=== PATIENT | female | born 1985 | race Caucasian/White ===

== ENCOUNTER 2017-04-27 22:06 | Emergency (ER) | payer BC, MEDICAID ==
[~2017-04-27] VITALS: Ht 160 cm; Wt 74.7 kg
[~2017-04-27 22:06] MED LIST: ACYC400T PO; ALPR.25 PO; CELE20TA PO; FAMO20TA2 PO; NAPR500T2 PO; REPL5000 CHEW
[2017-04-27 22:39] VITALS: BP 123/83; PULSE 90; RESP 18; TEMP 98.9; O2SAT 100
[2017-04-28] MEDS ORDERED: MAXA5TAB2 PO (00:35)
[2017-04-28 01:12] VITALS: BP 110/84; PULSE 81; RESP 18; O2SAT 100
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
[2017-04-28] MEDS ORDERED: IBUPROFEN 600 MG TAB PO ONE (02:15)
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
[2017-04-28 02:24] VITALS: BP 102/55; PULSE 67; RESP 18; O2SAT 100
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
[2017-04-28 03:27] VITALS: RESP 16
[2017-04-28] MEDS ORDERED: CYCL10TA PO (03:40)
[2017-04-28] MEDS ORDERED: IBUP-232 PO (03:40)
[2017-04-28 03:46] VITALS: BP 103/50
== END 2017-04-28 03:56 | disposition home or self-care (01) ==
LOC: PHED 22:06
DX: S16.1XXA Strain of muscle, fascia and tendon at neck level, initial encounter (principal); S00.03XA Contusion of scalp, initial encounter; M25.531 Pain in right wrist; M25.532 Pain in left wrist; H93.11 Tinnitus, right ear; H53.8 Other visual disturbances; F41.8 Other specified anxiety disorders; Z87.19 Personal history of other diseases of the digestive system; Y04.2XXA Assault by strike against or bumped into by another person, initial encounter
CPT/HCPCS: 70450; 72125; 99285

== ENCOUNTER 2018-01-22 06:04 | Inpatient (IN) ==
[2018-01-22] MEDS ORDERED: Chlorhexidine Gluconate 2% 1 Pack (2 Cloths) TOPICAL ONE (07:17)
[2018-01-22] MEDS ORDERED: Metoprolol Tartrate 25 MG Tablet PO ONE (07:17)
[2018-01-22] MEDS ORDERED: Dexmedetomidine Inj 200 MCG/2 ML Vial ONE (07:23)
[2018-01-22] MEDS ORDERED: Microfibrillar Collagen Hemostat 1 GM Packet TOPICAL ONE (07:29)
[2018-01-22] MEDS ORDERED: Lidocaine 1%/Epinephrine 1:100,000 Inj 50 ML Vial ONE (07:29)
[2018-01-22] MEDS ORDERED: Bacitracin Opth Oint 3.5 GM Tube ONE (07:29)
[2018-01-22] MEDS ORDERED: MethylPREDNISolone Sod Succinate Inj 125 MG/2 ML Vial IV.PUSH SCH (07:30)
[2018-01-22] MEDS ORDERED: Thrombin Topical Soln 5,000 UNIT Vial TOPICAL ONE (07:31)
[2018-01-22] MEDS ORDERED: Famotidine PF Inj 20 MG/2 ML Vial ONE (07:46)
[2018-01-22] MEDS ORDERED: ceFAZolin 2 GM IV; once IV.SIG ONE (08:00)
[2018-01-22] MEDS ORDERED: Sodium Chlor 0.9% Inj 500 ML IV.SIG SCH (08:00)
[2018-01-22] MEDS ORDERED: ceFAZolin 2 GM/NS 100 ML IV; Q8H IV.SIG SCH ×2 (08:00)
[2018-01-22] MEDS ORDERED: Lidocaine PF 1% Inj 5 ML Syringe OTHER ONE (08:13)
[2018-01-22] MEDS ORDERED: Labetalol HCl Inj 100 MG/20 ML Vial IV.CONT ONE (08:13)
[2018-01-22] MEDS ORDERED: Metoprolol Inj 5 MG/5 ML Vial IV.PUSH ONE (08:13)
[2018-01-22] MEDS ORDERED: Neostigmine Inj 5 MG/5 ML Syringe IV.PUSH ONE (08:13)
[2018-01-22] MEDS ORDERED: Glycopyrrolate Inj 1 MG/5 ML Syringe IV.PUSH ONE (08:13)
[2018-01-22] MEDS ORDERED: fentaNYL Citrate Inj 100 MCG/2 ML Ampul ONE (11:02)
[2018-01-22] MEDS ORDERED: Post-op Orders (for Pharmacy) OTHER ONE (11:03)
[2018-01-22] MEDS ORDERED: Naloxone Inj 0.4 MG/ML Vial IV.PUSH PRN (11:03)
[2018-01-22] MEDS ORDERED: Acetaminophen-HYDROcodone 325/7.5 Liq 15 ML UDC PO PRN (11:13)
[2018-01-22] MEDS ORDERED: PSEUDOEPHEDRINE HCL PO PRN (11:15)
[2018-01-22] MEDS: KCL 20 mEq/D5W/NaCl 0.45% Inj 1,000 ML IV.CONT SCH ×2 (11:16→17:19)
[2018-01-22] MEDS ORDERED: Ketorolac Inj 30 MG/ML (IVP) Vial ONE (11:20)
--- NOTE | 2018-01-22 11:22 | P.BOP ---
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
[2018-01-22] MEDS ORDERED: *morphine SULFATE 4 MG/ML PERIprocedure ONLY ONE (11:59)
--- NOTE | 2018-01-22 12:11 | P.OP ---
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 - Stable postoperative fixation Procedure: The patient was identified in the [facility] holding area and medical history and informed consent were reviewed with the patient. All questions were answered. The patient was taken via stretcher to operating room 9 and placed in the supine position on the operating table. Standard lines and monitors were applied. The patient was preoxygenated and general anesthesia was induced via IV. The patient was intubated nasoendotracheally without complications. The tube was secured by the hand meat salter team. Bilateral breath sounds and end tidal CO2 were noted. Eyes were taped with Tegaderm. An arterial line was started by the anesthesia team. A reilly catheter was inserted in a sterile fashion. Both arms were then tucked. Extremities were evaluated and found to be in normal range of motion with all pressure points padded. A second timeout was made. Local anesthetic was injected in the bilateral maxilla. The patient was prepped and draped using sterile technique in a usual hand meat salter manner. A throat pack was placed and noted. Attention was turned to the bilateral medial canthi. A marking pen was used to sadaf the medial canthi bilaterally. Using these as external reference points, measurements were taken from the maxillary canines. These measurements were marked on the sterile drapes. Electrocautery was then used to make a a right maxillary vestibular incision from the zygomatic buttress toward the maxillary midline. The incision was carried down to bone and #9 periosteal elevator was used to dissect in a subperiosteal plane to expose the anterior maxilla. The nasal mucosa was dissected free from the piriform aperture and nasal floor using a [place] elevator and #9 periosteal elevator. Electrocautery was then used to make a left maxillary vestibular incision from the zygomatic buttress toward the maxillary midline. The incision was carried down to bone and #9 periosteal elevator was used to dissect in a subperiosteal plane to expose the anterior maxilla. The nasal mucosa was dissected free from the piriform aperture and nasal floor using a [place] elevator and #9 periosteal elevator. A periosteal elevator was then used to dissect in a subperiosteal plane to expose the left and right lateral sinus wall. Next, a reciprocating saw was used to make a modified horizontal osteotomy starting at the zygomatic buttress on the left side following marking the proposed osteotomy with a sterile pencil. The osteotomy was carried inferiorly to the inferior portion of the piriform rim. Next, a periosteal elevator was used to dissect along the lateral aspect of the maxilla. A toe-out retractor was placed and a reciprocating saw under copious irrigation was used to osteotomize the left lateral maxillary sinus wall. At this point, the wound was packed with a moist Ray-Dayan and attention was turned to the right side. A toe-out retractor was placed and a reciprocating saw was used under copious irrigation to make a horizontal osteotomy starting at the right zygomatic buttress after marking the proposed osteotomy with a sterile pencil. The osteotomy was carried inferiorly to the inferior portion of the piriform rim. A reciprocating saw was then used to osteotomize the right lateral maxillary sinus wall. Attention was then directed to the anterior maxilla where the soft tissue was dissected from the anterior nasal spine with a #9 periosteal elevator and the nasal septopremaxillary ligament was removed. A nasal septal osteotome was then advanced into the wound and used to cleave the bony nasal septum. At this point, attention was turned to the right side where a spatula osteotome and mallet were used to cleave the lateral nasal wall as well as the perpendicular plate of the palatine bone. Attention was then turned to the left side where a spatula osteotome was used to cleave the left lateral nasal wall as well as the perpendicular plate of the palatine bone. Attention was then turned to the right side where a pterygomaxillary osteotome was introduced to the right side at the junction of the pterygoid plate and the maxilla. The position was verified with the use of digital palpation. Next, using a mallet, the pterygoid plates were cleaved and the wound was packed with a moist Ray Dayan. Attention was then turned to the left side where a pterygomaxillary osteotome was introduced and verified to be in appropriate position with digital palpation. With the use of a mallet, the pterygoid plate was cleaved from the maxilla and the wound was packed with a moist Ray-Dayan. Downward pressure was then placed on the maxilla by the surgeon's hand and the maxilla was downfractured. Lino spreaders were also used at the nasomaxillary and zygomaticomaxillary buttresses to deliver controlled force to down fracture the maxilla. The maxilla was then mobilized with Montaño disimpaction forceps. Periosteal elevator was then used to strip the nasal mucosa from the maxilla. Rongeur forceps were used to remove any bony interferences. #15 blade was then used to remove a cartilaginous strut of the nasal septum. The final splint was placed on the maxilla using 28 gauge wire and the patient was placed into maxillomandibular fixation using 25 gauge wire loops. Measurements were taken to confirm appropriate vertical positioning of the maxilla. 4-0 chromic suture was then used to reapproximate the mucosa of the nasal floor in an interrupted fashion. Next, the maxillary sinus membrane was elevated in the right maxillary premolar region. Bone morphogenic protein, allogeneic bone (Regeneross), xenograft (Bio-Oss) were placed in the right maxillary premolar region. PRP was layered superiorly over the bone graft. The maxilla was then appropriately positioned and the maxilla was reconstructed first with a 4-hole 2.0 KLS L plate adapted to the right nasomaxillary buttress. This was fixated under copious irrigation via predrilled osteotomies with 4, 2.0 mm x 5 mm screws. A 4-hole 2.0 KLS L plate was then adapted to the right zygomaticomaxillary buttress. This was fixated under copious irrigation via predrilled osteotomies with 4, 2.0 mm x 5 mm screws. Once the right side was fixated, attention was turned to the left side where 2, 4-hole KLS 2.0 L plates were adapted to the left maxilla at the nasomaxillary and zygomaticomaxillary buttresses. These plates were fixated in place using copious irrigation via predrilled osteotomies with 2.0 x 5 mm screws and one 2.0x7mm screw. The patient was released from maxillomandibular fixation. The occlusion was found to be stable and repeatable into the splint without interferences. The maxilla was stable. A nasal cinch suture was placed to reapproximate the alar base with 2-0 Prolene suture in an interrupted fashion. The wound was initially closed with 4-0 chromic gut suture placed in the muscular layer bilaterally. The anterior vertical wound in the maxilla along the midline was closed with a continuous horizontal mattress 4-0 chromic gut suture. The mucosal layer was then reapproximated with 4-0 chromic gut suture placed in a continuous horizontal mattress fashion. The entire oral cavity was thoroughly irrigated. The throat pack were removed under direct visualization with a Yankauer in place. An orogastric tube was placed into the stomach to remove its contents and retracted. The patient was placed in bilateral neutral posterior box (latex-free) elastics with an anterior box. The occlusion was stable and reproducible with the final splint. The patient was cleaned and turned back to the Anesthesia Care team where she was extubated without complication. The patient was transferred to the post- anesthesia care unit for recovery.
[2018-01-22] MEDS ORDERED: Sodium Chloride 0.9% 2 ML Flush PRN IV.FLUSH (13:48)
[2018-01-22] MEDS ORDERED: Morphine Inj 4 MG/ML Vial IV.PUSH PRN (16:07)
[2018-01-22] MEDS: Ketorolac Inj 30 MG/ML (IVP) Vial IV.PUSH SCH ×2 (16:24→23:27)
[2018-01-22] MEDS: ceFAZolin Inj 1,000 MG in Sodium Chlor 0.9% Inj 100 ML IV.SIG SCH ×2 (17:10→23:26)
[2018-01-22] MEDS ORDERED: Carboxymethylcellulose 0.5% Opth Drops 15 ML Bottle EACH EYE PRN (18:00)
[2018-01-22] MEDS: Sodium Chloride 0.9% 2 ML Flush BID IV.FLUSH SCH (20:01)
[2018-01-22] MEDS: MethylPREDNISolone Sod Succinate Inj 125 MG/2 ML Vial IV.PUSH SCH (20:01)
[2018-01-23] MEDS: KCL 20 mEq/D5W/NaCl 0.45% Inj 1,000 ML IV.CONT SCH (02:20)
[2018-01-23 05:44] LABS: Baso % (Auto) 0.2 % (0.0-2.0); Hemoglobin 9.3 gm/dL (11.6-15.3); Lymph # (Auto) 0.7 th/mm3 (1.0-4.8); Lymph % (Auto) 4.1 % (9.0-44.0); Mean Corpuscular Hemoglobin 25.4 pg (27.0-34.0); Mean Corpuscular Volume 79.4 fL (80.0-100.0); Mean Platelet Volume 8.7 fL (7.0-11.0); Mono # (Auto) 0.5 th/mm3 (0.0-0.9); Mono % (Auto) 2.9 % (0.0-8.0); Neut # (Auto) 16.6 th/mm3 (1.8-7.7); Neut % (Auto) 92.8 % (16.0-70.0); Platelet Count 337 th/mm3 (150-450); Red Blood Count 3.66 mil/mm3 (4.00-5.30); Red Cell Distribution Width 23.3 % (11.6-17.2); White Blood Count 17.8 th/mm3 (4.0-11.0)
[2018-01-23] MEDS: Ketorolac Inj 30 MG/ML (IVP) Vial IV.PUSH SCH ×2 (05:55→11:00)
[2018-01-23 06:07] LABS: Calcium 8.8 mg/dL (8.5-10.1); Carbon Dioxide 24.7 meq/L (21.0-32.0); Potassium 4.1 meq/L (3.5-5.1)
--- NOTE | 2018-01-23 07:01 | P.PN ---
Subjective Interval history: 32 y/o F with a history of Crohn's disease, iron deficiency anemia, and maxillary hypoplasia who is now s/p LeFort 1 osteotomy and right maxillary sinus lift on 01/22/18. She reports that her pain is well controlled. She has had minimal PO intake. She notes that her nose is very congested and that a rubber band on the right side broke last night. She denies any changes in her vision. She reports that the tenderness in her right forehead from yesterday has resolved. Physical Exam Vital signs: Vital Signs 01/22/18 07:34 01/22/18 10:51 01/22/18 11:37 Temperature 98.7 F 98.1 F Pulse Rate 80 86 65 Respiratory Rate 16 14 18 Blood Pressure 126/86 Pulse Oximetry 99 96 99 01/22/18 11:45 01/22/18 12:00 01/22/18 12:15 Temperature Pulse Rate 71 68 81 Respiratory Rate 14 19 14 Blood Pressure 107/69 113/77 111/70 Pulse Oximetry 95 94 L 95 01/22/18 12:30 01/22/18 13:00 01/22/18 16:54 Temperature 97.8 F 98.3 F Pulse Rate 85 89 Respiratory Rate 15 12 20 Blood Pressure 105/70 111/63 Pulse Oximetry 95 96 01/23/18 00:00 01/23/18 04:00 Temperature Pulse Rate Respiratory Rate 16 14 Blood Pressure Pulse Oximetry Intake & Output 01/22/18 01/22/18 01/23/18 06:59 18:59 06:59 Intake Total 1550 / 1550 1200 / 1200 Output Total 300 / 300 Balance 1250 / 1250 1200 / 1200 Weight 73.8 kg Intake: IV 1500 / 1500 1200 / 1200 D5W/1/2NS + KCL 20 mEq Inj 1, 1000 / 1000 000 ML @ 75 mls/hr IV.CONT . [id number] [facility] Rx#:[id number] LR 1000 mL Inj 1,000 ML @ 30 1500 / 1500 mls/hr IV.SIG .Q24H [facility] Rx#: [id number] Ancef Inj 1,000 MG In NS Inj 200 / 200 100 ML @ 200 mls/hr IV.SIG Q8H [facility] Rx#:[id number] Oral 50 / 50 Output: Urine 200 / 200 Estimated Blood Loss 100 / 100 Other: # Voids 2 Weight On Admission 71.6 kg Narrative: General: Appropriate, comfortable and in no apparent distress. Neurological: Alert and oriented to person, place, and time. CNV2 with diminished sensation bilaterally. HEENT: Head/Face: Normocephalic. Moderate bilateral facial edema. Eyes/Orbits: EOMI Oral Cavity/Oropharynx: Maxillary vestibular incision is well approximated, clean, and hemostatic. Sutures intact. Gingiva pink and well perfused. Moist mucous membranes. Splint in place. Occlusion is stable and repeatable into the splint. Left posterior box elastic in place. Right box elastic is not present. Palate is pink and well perfused. Floor of mouth soft. Good oral hygiene. Cardiovascular: Regular rate Pulmonary: Normal work of breathing on room air. Abdomen: Soft, non-tender, non-distended. Extremities: Warm, well perfused. Results - Labs CBC & Chem 7: 01/23/18 04:49 01/23/18 04:49 Laboratory Results - last 24 hr 01/22/18 01/23/18 01/23/18 07:25 04:49 04:49 WBC 17.8 H RBC 3.66 L Hgb 9.3 L Hct 29.0 L MCV 79.4 L MCH 25.4 L MCHC 32.0 RDW 23.3 H Plt Count 337 MPV 8.7 Neut % (Auto) 92.8 H Lymph % (Auto) 4.1 L [place] % (Auto) 2.9 Eos % (Auto) 0.0 Baso % (Auto) 0.2 Neut # (Auto) 16.6 H Lymph # (Auto) 0.7 L [place] # (Auto) 0.5 Eos # (Auto) 0.0 Baso # (Auto) 0.0 WBC Differential . Differential Comment Auto diff final Sodium 141 Potassium 4.1 Chloride 107 Carbon Dioxide 24.7 Anion Gap 9 BUN 10 Creatinine 0.76 Estimated GFR 88 L Random Glucose 155 H Calcium 8.8 Blood Type O Positive Blood Type Recheck Not needed Antibody Screen Negative MTS Gel Crossmatch See Detail Assessment and Plan - Plan 32 y/o F with a history of Crohn's disease, iron deficiency anemia, and maxillary hypoplasia who is now s/p LeFort 1 osteotomy and right maxillary sinus lift on 01/22/18, doing well post-operatively. -Epi today -Discontinue morphine -Continue to avoid forceful nose blowing, no straws -Encourage PO intake this morning. If patient's PO intake increases, likely discharge today. Will have patient follow-up in office for post-op radiographs and elastics training/replacement -Please do not hesitate to contact me with any questions or concerns at [phone]. Igor Christensen DDS, MD
[2018-01-23] MEDS: ceFAZolin Inj 1,000 MG in Sodium Chlor 0.9% Inj 100 ML IV.SIG SCH (08:59)
[2018-01-23] MEDS: MethylPREDNISolone Sod Succinate Inj 125 MG/2 ML Vial IV.PUSH SCH (09:17)
[2018-01-23] MEDS: Sodium Chloride 0.9% 2 ML Flush BID IV.FLUSH SCH (09:18)
[2018-01-23 12:00] LABS: Bacteria,Urine Rare /hpf; Bilirubin,Urine Negative (Negative); Clarity,Urine Clear (Clear); Color,Urine Straw (Yellw/Straw); Glucose,Urine (UA) Negative (Negative); Leukocyte Esterase,Urine Negative (Negative); Nitrite,Urine Negative (Negative); Specific Gravity,Urine 1.006 (1.002-1.035); Squamous Epithelial Cell,Urine 2 /hpf (0-5)
[2018-01-23 16:29] VITALS: PULSE 82; RESP 19; O2SAT 96
[2018-01-23 16:30] VITALS: BP 123/75; TEMP 98.3
== END 2018-01-23 21:06 | disposition home or self-care (01) ==
LOC: HSDC 06:04 → HSDI 12:02 → N03 13:06
PROVIDERS: ADMIT Dentist Oral and Maxillofacial Surgery; ATTEND Dentist Oral and Maxillofacial Surgery
PROC: [UNRECOGNIZED PROCEDURE] (2018-01-22 08:13)